=== PATIENT | female | born 1945 | race Two or more races ===

== ENCOUNTER 2018-04-21 15:15 | Outpatient (CLI) | payer OTHER ==
[~2018-04-21 15:15] MED LIST: BENADRYL50 MG PO; MEDROLPACK PO; TRAMADOL HCL-AP1 TAB PO
== END 2018-04-21 15:23 | disposition home or self-care (01) ==
LOC: MAMO-SONO 15:15
DX: Z12.31 Encounter for screening mammogram for malignant neoplasm of breast (principal); Z87.898 Personal history of other specified conditions; N64.4 Mastodynia

== ENCOUNTER → 2020-05-09 | Outpatient (CLI) | payer OTHER | END | disposition home or self-care (01) | LOC: MAMO-SONO 09:58 | PROVIDERS: ATTEND General Practice | DX: Z12.31 Encounter for screening mammogram for malignant neoplasm of breast (principal); N64.4 Mastodynia ==

== ENCOUNTER 2020-05-22 12:08 | Outpatient (CLI) | payer OTHER | END 2020-05-22 12:23 | disposition home or self-care (01) | LOC: NUCLEAR 12:08 | PROVIDERS: ATTEND General Practice | DX: M81.0 Age-related osteoporosis without current pathological fracture (principal) ==

== ENCOUNTER 2022-01-02 08:00 | Outpatient (CLI) | payer OTHER | END 2022-01-02 08:30 | disposition home or self-care (01) | LOC: PPH VACUNA 08:00 | PROVIDERS: ATTEND Emergency Medicine Pediatric Emergency Medicine | DX: Z23 Encounter for immunization (principal) ==

== ENCOUNTER 2022-08-07 13:13 | Outpatient (CLI) | payer OTHER | END 2022-08-07 13:21 | disposition home or self-care (01) | LOC: NUCLEAR 13:13 | PROVIDERS: ATTEND General Practice | DX: M81.0 Age-related osteoporosis without current pathological fracture (principal); Z12.31 Encounter for screening mammogram for malignant neoplasm of breast; N64.4 Mastodynia; Z88.8 Allergy status to other drugs, medicaments and biological substances; Z88.6 Allergy status to analgesic agent ==

== ENCOUNTER 2025-06-15 12:15 | Emergency (ER) | payer OTHER ==
[~2025-06-15] VITALS: Ht 165.1 cm; Wt 58.1 kg
[2025-06-15] MEDS ORDERED: BUPROPION HCL75 MG PO (12:26)
[2025-06-15] MEDS ORDERED: MORPHINE SULFATE 4 MG/ML VIAL IV ONE ×2 (12:45→19:30)
[2025-06-15] MEDS ORDERED: 0.9 % SODIUM CHLORIDE 1,000 ML IV SCH (12:45)
[2025-06-15 13:23] LABS: BASO % 0.4 % (0.1-1.2); EOS # 0.09 (0.04-0.54); EOS % 0.7 % (0.7-7.0); LYMPH # 0.86 (1.18-3.74); LYMPH % 6.5 % (19.3-53.1); MEAN PLATELET VOLUME 10.10 fl (9.4-12.4); MONO # 0.83 (0.24-0.82); MONO % 6.3 % (4.7-12.5); NEUT # 11.22 (1.56-6.13); NEUT % 85.5 % (34.0-71.1); RED CELL DISTRIBUTION WIDTH 12.4 % (11.6-14.4)
[2025-06-15 13:31] LABS: BUN CREA RATIO 17.0 (7.0-25.0); CREATININE SERUM 0.99 mg/dL (0.55-1.02); GFR 54.25; GLUCOSE FASTING 117.0 mg/dL (65-100); OSMOLALITY SERUM 282.0 MOSM/KG (275-295)
[2025-06-15 13:38] LABS: INR 1.09
[2025-06-15 13:41] LABS: COVID-19 AG NEGATIVE (NEGATIVE)
[2025-06-15 19:51] VITALS: BP 129/71; O2SAT 100
== END 2025-06-15 21:18 | disposition designated cancer center or children's hospital (05) ==
LOC: ER 12:15
PROVIDERS: Emergency Medicine
DX: S72.091A Other fracture of head and neck of right femur, initial encounter for closed fracture (principal); W19.XXXA Unspecified fall, initial encounter; Y93.89 Activity, other specified; Y92.018 Other place in single-family (private) house as the place of occurrence of the external cause; Y99.9 Unspecified external cause status; Z88.6 Allergy status to analgesic agent; Z20.822 Contact with and (suspected) exposure to COVID-19
CPT/HCPCS: 71045; 73502; 96365; 96366; 99285; J2270; J3490